=== PATIENT | male | born 1980 | race Caucasian/White ===

== ENCOUNTER 2021-10-12 11:56 | Inpatient (IN) | payer OTHER ==
[2021-10-12] MEDS ORDERED: SODIUM CHLORIDE 0.9% 1,000 ML IV STA (13:36)
--- NOTE | 2021-10-12 13:44 | ED ---
General Adult HPI - General Chief complaint: Extremity Injury, Upper Stated complaint: Withdrawals Time Seen by Provider: 10/12/21 13:30 Source: patient, RN notes reviewed, old records reviewed Mode of arrival: ambulatory Limitations: no limitations - History of Present Illness Initial comments: 40-year-old male, alert and oriented to person and place presents with complaints of falling off of a ladder 12 feet while painting a house 2 weeks ago. Patient is unable to tell me what he fell onto, states that he fell "over the top". It is unclear if the patient had a loss of consciousness. He did not seek medical care at that time. He is coming into the emergency room today for pain to bilateral shoulders and bilateral knees. He states he was brought to the hospital by his brother today. He states he does drink alcohol but has not been drinking today. Patient's speech is slow and slurred. He does have bruising to his face, both arms and right flank. He denies headache, no nausea , vomiting, diarrhea or fevers. He denies any other medical history. Denies any drug use. -: week(s) (2) Location: left, right, upper extremity, lower extremity (Bilateral shoulders and knees) Severity scale (1-10): 6 Quality: aching, constant Associated Symptoms: denies other symptoms Treatments Prior to Arrival: none - Related Data Allergies Allergy/AdvReac Type Severity Reaction Status Date / Time No Known Allergies Allergy Verified 10/12/21 12:03 Review of Systems ROS Statement: Those systems with pertinent positive or pertinent negative responses have been documented in the HPI. ROS Other: All systems not noted in ROS Statement are negative. Past Medical History Past Medical History: No Reported History History of Any Multi-Drug Resistant Organisms: None Reported Past Surgical History: No Surgical Hx Reported Past Psychological History: No Psychological Hx Reported Smoking Status: Current every day smoker Past Alcohol Use History: Daily Past Drug Use History: None Reported General Exam Limitations: no limitations General appearance: alert, in no apparent distress Head exam: Present: normocephalic, other (Bruising around the right eye) Eye exam: Present: EOMI, periorbital tenderness (Right eye). Absent: scleral icterus, conjunctival injection Pupils: Present: normal accommodation ENT exam: Present: mucous membranes moist Neck exam: Present: normal inspection, full ROM. Absent: tenderness, meningismus, lymphadenopathy, thyromegaly Respiratory exam: Present: normal lung sounds bilaterally. Absent: respiratory distress, accessory muscle use Cardiovascular Exam: Present: regular rate GI/Abdominal exam: Present: soft. Absent: distended, tenderness Back exam: Present: tenderness, other (Multiple bruises to the right flank) Neurological exam: Present: alert, oriented X3 Psychiatric exam: Present: normal affect, normal mood, other (Patient appears intoxicated) Skin exam: Present: warm, dry, abrasion (Dried scale abrasion left knee; multiple bruises to bilateral forearms and upper arms back and right eye) Course Vital Signs 10/12/21 12:01 Temperature 97.7 F Pulse Rate 97 Respiratory 18 Rate Blood Pressure 95/60 O2 Sat by Pulse 98 Oximetry EKG Findings - EKG Results: EKG: sinus rhythm (Ventricular rate 73, DE interval 0.152, QRS 0.91, QTC 0.451) Medical Decision Making - Medical Decision Making Patient presents with bilateral shoulder and bilateral knee pain after falling off a 12 foot ladder 2 weeks ago. Patient states he was brought to the hospital by his brother for evaluation. Patient did admit to the nurse that he drinks a pint of vodka a day. He denies drinking alcohol today. The patient seems slow to respond with slurred speech therefore a full trauma workup was completed. Patient has good range of motion to both shoulders and bilateral knees. There is pelvic stability. Abdomen is soft and nontender. CT brain and c-spine show no evidence of intracranial bleed, skull fracture or cervical spine fractures. Chest x-ray shows no acute cardiopulmonary disease. Alcohol level is 545, lactic acid is 2.5 and CPK 2060. Patient was given IV fluids. He'll be admitted to the hospital for rhabdomyolysis, acute alcohol intoxication. Case discussed with Dr. Cortes. - Lab Data Result diagrams: 10/12/21 13:40 10/12/21 13:40 Lab Results 10/12/21 10/12/21 10/12/21 Range/Units 13:40 13:40 13:40 WBC 4.6 (3.8-10.6) k/uL RBC 5.29 (4.30-5.90) m/uL Hgb 15.6 (13.0-17.5) gm/dL Hct 49.0 (39.0-53.0) % MCV 92.6 (80.0-100.0) fL MCH 29.4 (25.0-35.0) pg MCHC 31.8 (31.0-37.0) g/dL RDW 14.8 (11.5-15.5) % MPV 8.4 PT 9.5 (9.0-12.0) sec INR 0.8 (<1.2) APTT 23.6 (22.0-30.0) sec Sodium 135 L (137-145) mmol/L Potassium 3.2 L (3.5-5.1) mmol/L Chloride 95 L (98-107) mmol/L Carbon Dioxide 24 (22-30) mmol/L Anion Gap 16 mmol/L BUN 13 (9-20) mg/dL Creatinine 0.69 (0.66-1.25) mg/dL Est GFR (CKD-EPI)AfAm >90 (>60 ml/min/1.73 sqM) Est GFR (CKD-EPI)NonAf >90 (>60 ml/min/1.73 sqM) Glucose 74 (74-99) mg/dL Plasma Lactic Acid Keyur (0.7-2.0) mmol/L Calcium 8.2 L (8.4-10.2) mg/dL Total Bilirubin 0.9 (0.2-1.3) mg/dL AST 204 H (17-59) U/L ALT 126 H (4-49) U/L Alkaline Phosphatase 70 (38-126) U/L Creatine Kinase 2068 H* (55-170) U/L Total Protein 6.7 (6.3-8.2) g/dL Albumin 4.1 (3.5-5.0) g/dL Serum Alcohol 545 H* mg/dL /11/28 Range/Units 13:40 WBC (3.8-10.6) k/uL RBC (4.30-5.90) m/uL Hgb (13.0-17.5) gm/dL Hct (39.0-53.0) % MCV (80.0-100.0) fL MCH (25.0-35.0) pg MCHC (31.0-37.0) g/dL RDW (11.5-15.5) % MPV PT (9.0-12.0) sec INR (<1.2) APTT (22.0-30.0) sec Sodium (137-145) mmol/L Potassium (3.5-5.1) mmol/L Chloride (98-107) mmol/L Carbon Dioxide (22-30) mmol/L Anion Gap mmol/L BUN (9-20) mg/dL Creatinine (0.66-1.25) mg/dL Est GFR (CKD-EPI)AfAm (>60 ml/min/1.73 sqM) Est GFR (CKD-EPI)NonAf (>60 ml/min/1.73 sqM) Glucose (74-99) mg/dL Plasma Lactic Acid Keyur 2.5 H* (0.7-2.0) mmol/L Calcium (8.4-10.2) mg/dL Total Bilirubin (0.2-1.3) mg/dL AST (17-59) U/L ALT (4-49) U/L Alkaline Phosphatase (38-126) U/L Creatine Kinase (55-170) U/L Total Protein (6.3-8.2) g/dL Albumin (3.5-5.0) g/dL Serum Alcohol mg/dL Disposition Clinical Impression: Fall, Alcohol intoxication, Rhabdomyolysis, Lactic acidosis Disposition: ADMITTED IP TO THIS HOSP Referrals: None,Stated [Primary Care Provider] - 1-2 days Decision Date: 10/12/21
[2021-10-12 14:16] LABS: ALT 126 U/L (4-49); AST 204 U/L (17-59); African American GFR (CKD) >90 (>60 ml/min/1.73 sqM); Albumin 4.1 g/dL (3.5-5.0); Alkaline Phosphatase 70 U/L (38-126); Anion Gap 16 mmol/L; Blood Urea Nitrogen 13 mg/dL (9-20); Calcium 8.2 mg/dL (8.4-10.2); Carbon Dioxide 24 mmol/L (22-30); Chloride 95 mmol/L (98-107); Glucose 74 mg/dL (74-99); Non-African American GFR(CKD) >90 (>60 ml/min/1.73 sqM); Potassium 3.2 mmol/L (3.5-5.1); Sodium 135 mmol/L (137-145); Total Bilirubin 0.9 mg/dL (0.2-1.3); Total Protein 6.7 g/dL (6.3-8.2)
[2021-10-12 14:28] LABS: Basophils % (A) 1 %; Eosinophils % (A) 0 %; HGB 15.6 gm/dL (13.0-17.5); Lymphocytes % (A) 21 %; MCH 29.4 pg (25.0-35.0); MCHC 31.8 g/dL (31.0-37.0); MCV 92.6 fL (80.0-100.0); Mean Platelet Volume 8.4; Monocytes # (A) 0.2 k/uL (0-1.0); Monocytes % (A) 5 %; Neutrophils # (A) 3.2 k/uL (1.3-7.7); Neutrophils % (A) 71 %; RBC 5.29 m/uL (4.30-5.90); RDW 14.8 % (11.5-15.5); WBC 4.6 k/uL (3.8-10.6)
[2021-10-12 14:34] LABS: INR 0.8 (<1.2); Partial Thromboplastin Time 23.6 sec (22.0-30.0); Prothrombin Time 9.5 sec (9.0-12.0)
[2021-10-12 14:39] LABS: Creatine Kinase 2068 U/L (55-170)
[2021-10-12 14:41] LABS: Alcohol 545 mg/dL
[2021-10-12] MEDS ORDERED: SODIUM CHLORIDE 0.9% 1,000 ML IV ONE (14:43)
--- NOTE | 2021-10-12 14:52 | CT ---
EXAMINATION TYPE: CT brain carlos wo con DATE OF EXAM: 10/12/2021 COMPARISON: None HISTORY: altered mental status, trauma CT DLP: 1348.4 mGycm, Automated exposure control for dose reduction was used. CONTRAST: Patient injected with 0 mL of Isovue 300. CT of the brain is performed utilizing 3 mm thick sections through the posterior fossa and 3 mm thick sections through the remaining calvarium. Study is performed within 24 hours of arrival to the hospital. No abnormal hyperdensity is present to suggest an acute intracranial hemorrhage. No mass lesion is evident. No acute infarcts are evident. Ventricles and sulci are prominent for the patient age. There is opacification of the left maxillary sinus. Right septal deviation is noted. Bilateral shaina bullosa are likely present. IMPRESSIONS: 1. No suspicious lytic radiographically evident. MRI could be performed as as clinically indicated. 2. Atrophy 3. Opacification of the left maxillary sinus. Septal deviation is also noted. CT cervical spine. COMPARISON: None CT of the cervical spine is performed in the axial plane at 2 mm thick sections. Reconstructed image s in the coronal, and sagittal plane are reviewed on the computer. No acute fractures are evident. Vertebral body alignment is normal. C2-3: There is some mild central focal bulging present C2-C3 with mild intrathecal sac compression. N o spinal canal stenosis or neural foraminal stenosis present. C3-4: Minimal central disc bulge is also present C3-4 with mild intrathecal sac impression. C5-6: Endplate changes are present C5-C6. There is loss of disc height at this level. Posterior endpl ate spurring from the inferior endplate of C5 is present. No AP spinal canal stenosis present. Neural foramen are patent. Vertebral body heights are preserved. No spinal canal stenosis is evident. No neural foraminal stenosis is evident. IMPRESSIONS: 1. Central disc bulging and endplate changes within the upper to mid cervical spine discussed above. No stenosis is evident. No obvious cord compression identified.
--- NOTE | 2021-10-12 14:55 | XR ---
EXAMINATION TYPE: XR chest 1V portable DATE OF EXAM: 10/12/2021 COMPARISON: NONE HISTORY: Altered mental status, trauma TECHNIQUE: Single frontal view of the chest is obtained. FINDINGS: There is no focal air space opacity, pleural effusion, or pneumothorax seen. The cardiac silhouette size is within normal limits. The osseous structures are intact. IMPRESSION: No acute process.
[2021-10-12] MEDS ORDERED: LORazepam 2 MG/ML INJ IV PRN ×2 (15:02)
[2021-10-12] MEDS ORDERED: ACETAMINOPHEN TAB 325 MG TAB PO PRN (15:09)
[2021-10-12] MEDS ORDERED: NALOXONE 0.4 MG/ML 1 ML VIAL IV PRN (15:09)
[2021-10-12 15:12] LABS: Platelet Count 49 k/uL (150-450)
[2021-10-12 15:13] LABS: Large Platelets Present; RBC Morphology Normal
[2021-10-12 15:51] LABS: VBG PH 7.39 (7.31-7.41)
[2021-10-12] MEDS: THIAMINE 100 MG/ML 2 ML VIAL IVP SCH (15:57)
[2021-10-12 16:12] LABS: Appearance,Urine Clear (Clear); Bilirubin,Urine Negative (Negative); Blood,Urine Trace (Negative); Color,Urine Yellow; Glucose,Urine (UA) Negative (Negative); Hyaline Casts,Urine 1 /lpf (0-2); Leukocyte Esterase,Urine Negative (Negative); Mucus,Urine Many /hpf; Nitrite,Urine Negative (Negative); PH, Urine 6.5 (5.0-8.0); Protein,Urine Trace (Negative); Specific Gravity,Urine 1.013 (1.001-1.035); WBC,Urine 1 /hpf (0-5)
[2021-10-12 16:13] LABS: Ketones,Urine 2+ (Negative)
[2021-10-12 16:50] LABS: Amphetamine Screen,Urine Not Detected (NotDetected); Barbiturate Screen,Urine Not Detected (NotDetected); Benzodiazepines Screen,Urine Not Detected (NotDetected); Cocaine Screen,Urine Not Detected (NotDetected); Methadone Screen, Urine Not Detected (NotDetected); Opiate Screen,Urine Not Detected (NotDetected); Oxycodone Screen, Urine Not Detected (NotDetected); Phencyclidine Screen,Urine Not Detected (NotDetected); Tricyclic Antidepressant,Urine Not Detected (NotDetected); Urn Cannabinoid Scrn Not Detected (NotDetected)
[2021-10-12] MEDS ORDERED: NICOTINE 21MG/24HR PATCH TRANSDERM STA (16:59)
[2021-10-12] MEDS: SODIUM CHLORIDE 0.9% 1,000 ML IV SCH (17:03)
--- NOTE | 2021-10-12 17:53 | HP ---
HISTORY AND PHYSICAL CHIEF COMPLAINTS: Alcohol intoxication and fall. HISTORY OF PRESENT ILLNESS: This 40-year-old gentleman with a past medical history of etoh was admitted with alcohol withdrawal symptoms. The patient apparently was taking alcohol in large quantities; last drink was last night. The patient apparently had a fall from the ladder of about 12 feet a few days ago. The patient is complaining of headache, neck pain and diffuse aches and muscle strains and bruises. Evaluation is underway with x-rays, and the patient is being admitted for further evaluation and treatment. There is no history of any fever or rigors or chills. No loss of consciousness or seizures at this time. PAST MEDICAL HISTORY: History of a ETOH. HOME MEDICATIONS: None. ALLERGIES: NONE. FAMILY HISTORY: History of diabetes mellitus, hypertension. SOCIAL HISTORY: History of alcohol. No history of smoking. REVIEW OF SYSTEMS: Fourteen-point review of systems negative except as mentioned earlier. PHYSICAL EXAMINATION: Pulse is 110, blood pressure 190/103, respiration 20. HEENT: Conjunctivae normal. Oral mucosa moist. NECK: No jugular venous distention. CARDIOVASCULAR: S1, S2 muffled. RESPIRATION: Breath sounds diminished at the bases. A few scattered rhonchi and crackles. ABDOMEN: Soft, nontender. LEGS: No edema. No swelling. NERVOUS SYSTEM: Diffusely weak. Tremors present. JOINTS: No active deforming arthropathy. Movements of joints are painful. LYMPHATICS: No lymph node palpable in neck, axillae or groin. Diffuse rash also present. LABS: Pending at this time.etoh 545 ASSESSMENT: 1. Acute alcohol intoxication. 2. Early delirium tremens. 3. H/o fall and contusions RECOMMENDATIONS AND DISCUSSION: In this 40-year-old gentleman who presented with multiple complex medical issues, I would recommend to continue the current medications, continue symptomatic treatment. I would recommend CIWA protocols. Recommend close monitoring of the blood pressure. Pain management. X-rays. Guarded prognosis because of multiple complex medical issues. Further recommendations to follow. Discussed with the patient. Recommend elementary school social worker consultation as well as alcohol cessation recommendation and possible rehab also. MMODL / IJN: [id number] / MTDD
[2021-10-12] MEDS: NICOTINE 21MG/24HR PATCH TRANSDERM SCH (23:01)
[2021-10-13] MEDS: SODIUM CHLORIDE 0.9% 1,000 ML IV SCH ×3 (05:29→15:57)
[2021-10-13] MEDS: NICOTINE 21MG/24HR PATCH TRANSDERM SCH (08:00)
[2021-10-13] MEDS: LORazepam 2 MG/ML INJ IV PRN ×3 (08:29→20:01)
[2021-10-13] MEDS: THIAMINE 100 MG/ML 2 ML VIAL IVP SCH (08:34)
[2021-10-13] MEDS ORDERED: HYDROcodone/APAP 5-325MG 1 EACH TAB PO PRN (16:59)
[2021-10-13] MEDS ORDERED: Magnesium Replacement Protocol 1 EACH MISC MISCELLANE PRN (17:00)
[2021-10-13] MEDS ORDERED: Potassium Replacement Protocol 1 EACH MISC MISCELLANE PRN (17:00)
[2021-10-13] MEDS: 0.9% NACL WITH KCL 40 MEQ/L 1,000 ML IV SCH (17:39)
--- NOTE | 2021-10-13 19:04 | PN ---
PROGRESS NOTE DATE OF SERVICE: 10/13/2021 This 40-year-old gentleman admitted with significant alcoholism had a recent fall also. X-rays and CT scan did not show any fractures. The patient is receiving CIWA protocol. Patient has significant tremors and features of delirium tremens. PHYSICAL EXAMINATION: Pulse is 112, blood pressure 164/80, respirations 19. HEENT: Conjunctivae normal. NECK: No jugular venous distention. CARDIOVASCULAR: S1, S2 muffled. RESPIRATION: Breath sounds diminished at the bases. Bilateral scattered rhonchi and crackles. ABDOMEN: Soft. NERVOUS SYSTEM: Tremors. LABS: Reviewed. Lactic acid 2.1. Creatine kinase 2006. ASSESSMENT: 1. Acute alcohol intoxication. 2. Early delirium tremens. 3. Acute rhabdomyolysis. 4. History of fall with contusions. RECOMMENDATIONS AND DISCUSSION: I recommend to continue current medications, continue with the monitoring, symptomatic treatment. Continue with CIWA protocol. Prognosis guarded. Continue with IV fluids. Further recommendations to follow. MMODL / IJN: [id number] /
[2021-10-13] MEDS: HEPARIN SODIUM,PORCINE/PF 5,000 UNIT/0.5 ML SYRINGE SQ SCH (20:00)
[2021-10-13] MEDS: POTASSIUM CHLORIDE ER 20 MEQ TAB.ER PO SCH ×3 (20:00→22:13)
[2021-10-14] MEDS: LORazepam 2 MG/ML INJ IV PRN (07:47)
[2021-10-14] MEDS: 0.9% NACL WITH KCL 40 MEQ/L 1,000 ML IV SCH ×2 (07:51→20:53)
[2021-10-14] MEDS: HEPARIN SODIUM,PORCINE/PF 5,000 UNIT/0.5 ML SYRINGE SQ SCH ×2 (07:58→20:53)
[2021-10-14] MEDS: NICOTINE 21MG/24HR PATCH TRANSDERM SCH ×2 (07:58→07:59)
[2021-10-14] MEDS: THIAMINE 100 MG/ML 2 ML VIAL IVP SCH (08:14)
[2021-10-14 09:18] LABS: African American GFR (CKD) 158.5 (60.0-200.0); Albumin 3.4 g/dL (3.8-4.9); Albumin/Globulin Ratio 1.92 (1.60-3.17); Anion Gap 14.1 mmol/L (10.00-18.00); BUN/Creat Ratio 5.92 Ratio (12.00-20.00); Blood Urea Nitrogen 2.8 mg/dL (9.0-27.0); Calcium 8.2 mg/dL (8.7-10.3); Carbon Dioxide 22.6 mmol/L (20.0-27.5); Globulin 1.8 g/dL (1.6-3.3); Magnesium 1.5 mg/dL (1.5-2.4); Non-African American GFR(CKD) 136.8 (60.0-200.0); Potassium 3.5 mmol/L (3.5-5.5); Total Bilirubin 0.7 mg/dL (0.30-1.20); Total Protein 5.1 g/dL (6.2-8.2)
[2021-10-14 10:07] LABS: Basophils # (A) 0.01 X 10*3/uL (0.00-0.10); Basophils % (A) 0.2 %; Eosinophils # (A) 0.04 X 10*3/uL (0.04-0.35); Eosinophils % (A) 0.9 %; HCT 35.7 % (39.6-50.0); HGB 12.5 g/dL (13.0-17.0); Immature Grans, Automated 0.7 %; Lymphocytes % (A) 18.6 %; MCH 30.3 pg (27.0-32.0); MCV 86.7 fL (80.0-97.0); Mean Platelet Volume 11.1 fL (9.5-12.2); Monocytes # (A) 0.52 X 10*3/uL (0.20-1.00); Monocytes % (A) 12.1 %; NRBC Per 100 WBC 0 /100 WBCS (0.0-0.0); Neutrophils % (A) 67.5 %; Platelet Count 36 X 10*3/uL (140-440); RBC 4.12 X 10*6/uL (4.40-5.60); RBC Morphology NORMAL; RDW 15.8 % (11.5-14.5)
[2021-10-14] MEDS: cloNIDine HCL 0.1 MG TAB PO SCH ×2 (13:06→20:53)
--- NOTE | 2021-10-14 18:20 | PN ---
PROGRESS NOTE DATE OF SERVICE: 10/14/2021 This 40-year-old gentleman, admitted with significant alcoholism, also had some fall and confusion. No chest pain. No palpitations. No fever. The blood pressure is elevated. PHYSICAL EXAMINATION: Pulse is 109, blood pressure 125/85, respiration 18. CARDIOVASCULAR: S1, S2 muffled. RESPIRATION: A few scattered rhonchi. ABDOMEN: Soft. NERVOUS SYSTEM: No focal deficit. LABS: Reviewed. ASSESSMENT: 1. Acute alcohol intoxication. 2. Early delirium tremens. 3. Acute rhabdomyolysis. 4. History of fall with contusions. RECOMMENDATIONS AND DISCUSSION: I recommend to continue current medications, continue with the monitoring, symptomatic treatment. The creatine kinase is showing diminishing trends. Renal functions are normal. Will continue with the current medications as well as IV fluids and repeat labs tomorrow. Further recommendations to follow. KAYLI / ARMIDA: [id number] /
[2021-10-14] MEDS: CHLORHEXIDINE GLUCONATE 15 ML CUP MUCOUS MEM SCH (20:54)
[2021-10-15] MEDS: LORazepam 2 MG/ML INJ IV PRN (07:30)
[2021-10-15] MEDS: cloNIDine HCL 0.1 MG TAB PO SCH (07:32)
[2021-10-15] MEDS: THIAMINE 100 MG/ML 2 ML VIAL IVP SCH (07:33)
[2021-10-15] MEDS: NICOTINE 21MG/24HR PATCH TRANSDERM SCH (07:33)
[2021-10-15 08:51] VITALS: BP 157/98; PULSE 107; RESP 16; TEMP 97.7
[2021-10-15 09:25] LABS: African American GFR (CKD) 169.8 (60.0-200.0); Albumin 3.3 g/dL (3.8-4.9); Albumin/Globulin Ratio 1.74 (1.60-3.17); Anion Gap 11.2 mmol/L (10.00-18.00); BUN/Creat Ratio 9.75 Ratio (12.00-20.00); Blood Urea Nitrogen 3.9 mg/dL (9.0-27.0); Calcium 8.5 mg/dL (8.7-10.3); Carbon Dioxide 21.8 mmol/L (20.0-27.5); Globulin 1.9 g/dL (1.6-3.3); Non-African American GFR(CKD) 146.5 (60.0-200.0); Potassium 3.7 mmol/L (3.5-5.5); Total Bilirubin 0.6 mg/dL (0.30-1.20); Total Protein 5.2 g/dL (6.2-8.2)
[2021-10-15 10:30] LABS: Basophils # (A) 0.02 X 10*3/uL (0.00-0.10); Basophils % (A) 0.6 %; Eosinophils # (A) 0.15 X 10*3/uL (0.04-0.35); Eosinophils % (A) 4.7 %; HGB 11.4 g/dL (13.0-17.0); Immature Grans, Automated 1.3 %; Lymphocytes # (A) 0.75 X 10*3/uL (0.90-5.00); Lymphocytes % (A) 23.6 %; MCH 30.3 pg (27.0-32.0); MCHC 33.5 g/dL (32.0-37.0); MCV 90.4 fL (80.0-97.0); Mean Platelet Volume 12.7 fL (9.5-12.2); Monocytes # (A) 0.41 X 10*3/uL (0.20-1.00); Monocytes % (A) 12.9 %; NRBC Per 100 WBC 0 /100 WBCS (0.0-0.0); Neutrophils # (A) 1.81 X 10*3/uL (1.80-7.70); Neutrophils % (A) 56.9 %; Platelet Count 33 X 10*3/uL (140-440); RBC 3.76 X 10*6/uL (4.40-5.60); RDW 16.2 % (11.5-14.5); WBC 3.18 X 10*3/uL (4.50-10.00)
[2021-10-15 10:31] LABS: Immature Platelet Fraction 15.9 % (1.1-6.1)
[2021-10-15] MEDS: CHLORHEXIDINE GLUCONATE 15 ML CUP MUCOUS MEM SCH (13:14)
[2021-10-15] MEDS: HEPARIN SODIUM,PORCINE/PF 5,000 UNIT/0.5 ML SYRINGE SQ SCH (13:14)
--- NOTE | 2021-10-16 10:45 | P.DS ---
Providers Date of admission: 10/12/21 15:16 Expected date of discharge: 10/15/21 Attending physician: Yessenia Salguero MD Primary care physician: Stated None Hospital Course: Final diagnosis Acute alcohol intoxication Early delirium tremens Acute rhabdomyolysis History of fall with contusions full code Discharge disposition Patient is being discharged in a stable condition with guarded prognosis to home. Patient will follow-up with Dr. Gonsales in the outpatient setting upon discharge. Patient is to follow-up with CM in the outpatient setting for possible alcohol rehab and AA meetings. Patient was given a Librium taper on discharge and encourage the patient will avoid alcohol use. Commend repeat labs to monitor CBC and BMP in the outpatient setting. Total time taken is greater than 35 minutes. Hospital course This is a 40-year-old male who was recently admitted with significant alcoholism and also falls and confusion and was being closely monitored. Patient was maintained on CIWA protocol and IV hydration and labs are improving and recommend close outpatient follow-up with repeat labs and also establishing with primary care provider. Discussed with the patient about alcohol rehab and patient will follow-up with [facility] in the outpatient setting and plans on returning home where he lives with his brother who does not drink. Encouraged AA meetings. Patient tolerating diet and is requesting to go home. Patient was given a Librium taper on discharge and encouraged to avoid all alcohol intake. Currently no reports of chest pain, shortness of breath, or palpitations. Patient is afebrile. No reports of nausea or vomiting and patient is tolerating diet. Patient was provided resources for outpatient CM. Patient will be discharged home today. Guarded prognosis. On exam vital signs are stable. Cardio S1, S2 are muffled. Respiratory system shows diminished breath sounds at the bases with no wheezing or rhonchi noted. Abdomen is soft and nontender. Nervous system shows no focal deficits. Please refer to medication reconciliation sheet for a list of medications. The impression and plan of care has been dictated by Lisset Bojorquez, Nurse Practitioner as directed. Dr. Grady MD I have performed a history and examination and MDM of this patient, discussed the same with the dictator, and agree with the dictator's assessment and plan as written ,documented as a scribe. Based on total visit time, I have performed more than 50% of the visit. Patient Condition at Discharge: Fair Plan - Discharge Summary Discharge Rx Participant: No New Discharge Prescriptions: New cloNIDine HCL [Catapres] 0.1 mg PO BID #60 tab Acetaminophen Tab [Tylenol] 650 mg PO Q6HR PRN tab PRN Reason: Mild Pain Or Fever > 100.5 Thiamine [Vitamin B-1] 100 mg PO DAILY #30 tablet Folic Acid 1 mg PO DAILY #30 tablet chlordiazePOXIDE HCl [Librium] 10 mg PO TID 3 Days #12 capsule Multivitamins, Thera [Multivitamin] 1 tab PO DAILY #30 tablet Discharge Medication List Acetaminophen Tab [Tylenol] 650 mg PO Q6HR PRN tab 10/15/21 [Rx] Folic Acid 1 mg PO DAILY #30 tablet 10/15/21 [Rx] Multivitamins, Thera [Multivitamin] 1 tab PO DAILY #30 tablet 10/15/21 [Rx] Thiamine [Vitamin B-1] 100 mg PO DAILY #30 tablet 10/15/21 [Rx] chlordiazePOXIDE HCl [Librium] 10 mg PO TID 3 Days #12 capsule 10/15/21 [Rx] cloNIDine HCL [Catapres] 0.1 mg PO BID #60 tab 10/15/21 [Rx] Follow up Appointment(s)/Referral(s): Chelsi Gonsales MD [REFERRING] - 1 Week (patient to call and make new patient appointment after discharge ) Ambulatory/Diagnostic Orders: Complete Blood Count w/diff [LAB.AMB] Time Frame: 3 Days, Location: None Selected Patient Instructions/Handouts: Rhabdomyolysis (DC), Alcohol Intoxication (DC) Activity/Diet/Wound Care/Special Instructions: Activity Limited until follow-up Follow-up with primary care provider on discharge and establish Follow-up with community mental health and establish for possible alcohol rehab and AA meetings Continue current diet Avoid all alcohol intake Recommend repeat labs in 2-3 days Discharge Disposition: HOME SELF-CARE
== END 2021-10-15 15:28 | disposition home or self-care (01) | DRG 897 ==
LOC: EC 11:56 → 4SSUR 15:16
PROVIDERS: ADMIT Internal Medicine; ATTEND Internal Medicine
DX: F10.231 Alcohol dependence with withdrawal delirium (principal); M62.82 Rhabdomyolysis; E87.2 Acidosis; F10.229 Alcohol dependence with intoxication, unspecified; F17.200 Nicotine dependence, unspecified, uncomplicated; Y90.8 Blood alcohol level of 240 mg/100 ml or more; S00.83XA Contusion of other part of head, initial encounter; W19.XXXA Unspecified fall, initial encounter; Z83.3 Family history of diabetes mellitus; Z82.49 Family history of ischemic heart disease and other diseases of the circulatory system
CPT/HCPCS: 36415; 70450; 71045; 72125; 80053; 80306; 80320; 81001; 82550; 82803; 83605; 83735; 84132; 85025; 85384; 85610; 85730; 86850; 86900; 86901; 93005; 94760; 96361; 96374; 99285